=== PATIENT | female | born 1985 | race Asian ===

== ENCOUNTER → 2016-04-25 | Outpatient (CLI) | payer OTHER ==
[~2016-04-25] MED LIST: PRENTAB26 PO
== END | disposition home or self-care (01) ==
LOC: C.LABSPEC 15:07
PROVIDERS: ATTEND Obstetrics & Gynecology
DX: Z34.83 Encounter for supervision of other normal pregnancy, third trimester (principal)

== ENCOUNTER 2016-05-15 13:32 | Inpatient (IN) | payer OTHER ==
[~2016-05-15] VITALS: Ht 157.5 cm; Wt 79.0 kg
[2016-05-15 13:53] VITALS: Ht 157.5 cm; Wt 79.0 kg
[2016-05-15] MEDS ORDERED: LACTATED RINGER'S 1000ML 1,000 ML IV PRN (14:08)
[2016-05-15] MEDS ORDERED: LACTATED RINGER'S 1000ML 1,000 ML IV SCH (14:08)
[2016-05-15 15:03] LABS: HEMATOCRIT 37.9 % (37-47); MEAN CELL VOLUME 92.2 fL (80-100); MEAN CORPUSCULAR HEMOGLOBIN 32.1 pg (25-34); MEAN CORPUSCULAR HGB CONC 34.8 g/dl (32-36); MEAN PLATELET VOLUME 10.7 fL (7.4-10.4); PLATELET COUNT 177 K/uL (130-400); RED BLOOD COUNT 4.11 M/uL (4.2-5.4); WHITE BLOOD COUNT 9.64 K/uL (4.8-10.8)
[2016-05-15] MEDS ORDERED: BUPIVACAINE 0.25% 30 ML VIAL ONE (15:03)
[2016-05-15] MEDS ORDERED: FENTANYL CITRATE INJ 50 MCG/1 ML 2 ML VIAL ONE (15:03)
[2016-05-15] MEDS ORDERED: EpHEDrine SULFATE INJ 50 MG/ML AMP ONE (15:03)
[2016-05-15] MEDS ORDERED: FENTANYL 2MCG/ML ROPIV 1.25MG/ML 100ML BAG EPI ONE (15:04)
[2016-05-15] MEDS ORDERED: LACTATED RINGER'S 1000ML 500 ML IV PRN (16:20)
[2016-05-15] MEDS ORDERED: NALOXONE HCL INJ 1 MG in SODIUM CHLORIDE 0.9% 1000ML 1,000 ML IV PRN (16:20)
[2016-05-15] MEDS ORDERED: DiphenhydrAMINE HCL 50 MG/ML VIAL IV PRN (16:30)
[2016-05-15] MEDS ORDERED: NALBUPHINE HCL INJ 10 MG/ML AMP IV PRN (16:30)
[2016-05-15] MEDS ORDERED: NALOXONE HCL INJ 0.4 MG/1 ML VIAL/CARP IV PRN (16:30)
[2016-05-15] MEDS ORDERED: FENTANYL 2MCG/ML ROPIV 1.25MG/ML 100ML BAG EPI PRN (16:30)
[2016-05-15] MEDS ORDERED: EpHEDrine SULFATE INJ 50 MG/ML AMP IV PRN (16:30)
[2016-05-15] MEDS ORDERED: ONDANSETRON INJ 2 MG/ML 2 ML VIAL IV PRN (16:30)
[2016-05-15] MEDS ORDERED: OXYTOCIN 30 UNITS/500ML NSS IV ONE (18:05)
[2016-05-15] MEDS ORDERED: ACETAMINOPHEN 325 MG TAB PO PRN (18:45)
[2016-05-15] MEDS ORDERED: HYDROCORTISONE ACETATE 25 MG SUPP PR PRN (18:45)
[2016-05-15] MEDS ORDERED: OXYTOCIN 30 UNITS/500ML NSS IV PRN (18:45)
[2016-05-15] MEDS ORDERED: ACETAMINOPHEN/CODEINE 300/30MG TAB PO PRN ×2 (18:45)
[2016-05-15] MEDS ORDERED: BENZOCAINE 20% AER SPR 82.5 GM CAN EXT PRN (18:45)
[2016-05-15] MEDS ORDERED: LANOLIN OINT EXT PRN ×2 (18:45)
[2016-05-15] MEDS ORDERED: SUPERCREAM 0.870 % 15GM JAR EXT PRN (18:45)
[2016-05-15] MEDS ORDERED: OXYCODONE/ACETAMINOPHEN 5-325 TAB PO PRN (18:45)
[2016-05-15] MEDS: IBUPROFEN 600 MG TAB PO PRN (20:20)
[2016-05-15] MEDS: DOCUSATE SODIUM 100 MG CAP PO SCH (20:25)
--- NOTE | 2016-05-15 20:26 | DELIVERY SUMMARY ---
DATE OF OPERATION: 05/15/2016 VAGINAL DELIVERY NOTE Mrs. Velasco presented for labor and delivery. Her was uncomplicated. She is group B strep negative, 39 weeks 4 days with not rupture of membranes. She presented to then labor. heart rate was category 1. She requested epidural. ARM performed at 8 cm and then the patient shortly afterwards delivered a baby in left occiput anterior position. There was a loose nuchal cord and it was released after delivery of the head. Mouth and then nares were suctioned with bulb. Baby was delivered by gentle traction, no excessive force was used. Live vigorous male infant. Cord gas was obtained, cord blood obtained, placenta removed with gentle traction. Second degree tear repaired with 3-0 Vicryl. Sponge and instrument counts correct. Rectal exam negative for defects or sutures. Estimated blood loss 300 mL. I attest to the content of the Intraoperative Record and any orders documented therein. Any exceptio ns are noted below.
--- NOTE | 2016-05-15 21:25 | Anesthesia Procedure Note ---
Anesthesia Epidural Removal Nt Date & Time May 15, 2016 at 21:25 Vital Signs Pain Intensity: 4.0 Notes Mental Status: alert / awake / arousable, participated in evaluation Nausea / Vomiting: adequately controlled Pain: adequately controlled Airway Patency, RR, SpO2: stable & adequate BP & HR: stable & adequate Hydration State: stable & adequate Neuraxial Anesthesia: was administered, sensory block is resolving Anesthetic Complications: no major complications apparent, pt satisfied with anesthetic care Epidural: removed without complications, with tip intact
[2016-05-15 22:05] VITALS: BP 103/70; PULSE 100; TEMP 37; O2SAT 97
[2016-05-15 23:15] VITALS: BP 98/64; PULSE 89; TEMP 37; O2SAT 98
[2016-05-16 03:30] VITALS: BP 97/61; PULSE 86; TEMP 36.8; O2SAT 96
[2016-05-16] MEDS: IBUPROFEN 600 MG TAB PO PRN ×3 (06:27→16:25)
[2016-05-16 07:04] LABS: HEMATOCRIT 31.3 % (37-47)
[2016-05-16 08:00] VITALS: BP 97/63; PULSE 85; TEMP 36.8
[2016-05-16] MEDS: DOCUSATE SODIUM 100 MG CAP PO SCH ×2 (08:09→20:05)
[2016-05-16] MEDS: PRENATAL VITAMIN TAB PO SCH (08:09)
--- NOTE | 2016-05-16 08:29 | Progress Note ---
Subjective May 16, 2016. Subjective conversation w/ patient, physical exam, chart review, lab review Ambulation: ambulating normally Voiding: no voiding problems Diet Tolerance: Regular Diet Lochia: Small Objective Vital Signs Date Time Temp Pulse Resp B/P Pulse Ox O2 Delivery O2 Flow Rate FiO2 05/16/16 03:30 36.8 86 16 97/61 96 Room Air 05/15/16 23:15 37.0 89 18 98/64 98 Room Air 05/15/16 23:15 Room Air 05/15/16 22:05 37.0 100 16 103/70 97 Room Air 05/15/16 22:05 Room Air Physical Exam General Appearance: WELL-APPEARING Abdomen: non tender Fundus: Firm Extremities: no calf tenderness Laboratory Results Last 24 Hours Test 05/15/16 14:30 05/16/16 06:35 White Blood Count 9.64 K/uL Red Blood Count 4.11 M/uL Hemoglobin 13.2 g/dL 10.7 g/dL Hematocrit 37.9 % 31.3 % Mean Corpuscular Volume 92.2 fL Mean Corpuscular Hemoglobin 32.1 pg Mean Corpuscular Hemoglobin Concent 34.8 g/dl RDW Standard Deviation 48.1 fL RDW Coefficient of Variation 14.4 % Platelet Count 177 K/uL Mean Platelet Volume 10.7 fL Assessment and Plan Post- Day#: 1 Continue Routine Care: home
--- NOTE | 2016-05-16 08:30 | Discharge Instructions ---
Discharge Instructions Date of Service May 16, 2016. Admission Reason for Admission: R/O Labor Discharge Discharge Diagnosis / Problem: normal delivery Discharge Goals Goal(s): Routine recovery after delivery Activity Recommendations Activity Limitations: per Instructions/Follow-up section . Instructions / Follow-Up Instructions / Follow-Up ACTIVITY RECOMMENDATIONS: * Gradual return to full activity over the next 2-3 weeks. * No lifting - nothing heavier than baby over the next 2-3 weeks. * Do not engage in vigorous exercise, sexual activity or sports until cleared by your physician. * Do not drive or operate any motorized equipment until cleared by your physician. * You may shower/bathe daily. MEDICATIONS: For discomfort or pain, you may use Acetaminophen (Tylenol), Ibuprofen (Advil), or Naproxen (Aleve) following the package directions. For constipation you may use Colace following the package directions. BREAST CARE: If you are not breast feeding: * Wear a supportive bra 24 hours a day for one to two weeks. * Avoid stimulating your breasts and nipples as much as possible during the first few weeks after delivery. * When taking a shower, have the warm water hit your back, not breasts. * When your breasts feel full, apply ice packs. Usually three to four times a day helps ease the discomfort. * Take a mild pain medication (Tylenol / Motrin) when you are uncomfortable. If breast feeding: * Use breast milk to lubricate nipples. Lansinoh cream may be used for sore nipples. You do not need to remove cream prior to breast feeding. If using a different brand of cream, check the label for directions regarding removal of cream prior to nursing. * Wear a supportive bra. * If having problems with breasts or breast feeding, call a siebel consultant or your health care provider. EPISIOTOMY CARE: After delivery, if you have an episiotomy (stitches), the following steps will ease discomfort and aid healing. * For the first 24 hours after delivery, place ice packs next to your episiotomy to help reduce swelling. * After the first 24 hour-period, sitz baths, either portable or in the tub, are suggested. A shower with a shower arm sprayed over the episiotomy may be comforting. * Ysabel care should be done after each voiding and bowel movement. Squirt warm water from a plastic bottle over the perineum (region of the body between the anus and urinary opening) and pat dry. * Use Dermoplast to ease discomfort. Shake container. [place] directly over the episiotomy. Place a Tucks on a clean sanitary pad next to your episiotomy. SPECIAL CARE INSTRUCTIONS: When you are discharged from the hospital, it is important for you to follow the instructions listed below: * During the first week at home, you should be able to care for yourself and your baby. In addition, the usual light household activities are encouraged. * Limit your activities to the way you feel. Do not try to clean the house or move furniture. Be sensible. * If you actively engage in sports and have done so up until the time of your delivery, you may resume these activities as soon as you feel able. This may take up to one month or even longer. Use good judgment. * Continue to take your vitamins for at least six weeks after the of your baby. * Your diet need not be limited unless you were on a special diet before your delivery. Breast-feeding mothers need around 2500 calories per day and at least 64-80 ounces of fluid per day (8 to 10 glasses). * You should eat foods from the four major food groups. Crash diets or fad diets are to be avoided. Eating lean meats, fresh fruits and vegetables, low-fat dairy products, high fiber foods and a regular exercise program, will help you get back to your pre- weight without putting your health at risk. * Constipation is sometimes a problem after delivery. Take a mild laxative as needed. If breast feeding, Milk of Magnesia is acceptable to use. You may use a suppository or Fleets enema if no episiotomy. * A daily shower or tub bath is suggested. Be sure to thoroughly and gently dry the perineum. * A bloody vaginal discharge will usually continue until around four weeks post . A small amount of bleeding may continue for as long as six weeks. Vaginal discharge changes from the bright red bleeding after delivery to pink then brownish and finally yellowish-pink before becoming white and disappearing. * Bleeding may increase with activity. Your first period may come in 4-8 weeks. If you are breast feeding, your period may be delayed even longer. * [place] (sex) can begin whenever both you and your partner feel comfortable and do not have any form of genital infection. It is recommended that you wait at least six weeks for internal and external healing to occur. If you have questions, please talk to your health care practitioner. A condom should be used to prevent infection and . * Foreplay, gentle intercourse and lubrication is very important the first several times to prevent pain. A water-based lubricant such as K-Y jelly or Astroglide may be used. * If you have RH negative blood and your baby is RH positive, you will receive RHOGAM by injection prior to discharge. The nurse will give you a card to keep with you that has the date and place that you received RHOGAM after delivery. * During your care, you had a Rubella screen done to check for the presence of rubella antibodies in your blood. If your test was negative, you will receive a Rubella vaccine prior to discharge. This vaccine may cause a fever, soreness at the injection site and flu-like symptoms. If these symptoms persist, notify your health care practitioner. is not advised for one month after a Rubella vaccine. * Verbalizes understanding of car seat law as reviewed with patient nursing. * Car Seat hand-out given and reviewed with patient by nursing. * Shaken baby information reviewed with patient by nursing. Call you doctor if: * Heavy bleeding (saturating several pads an hour) or passing clots the size of your fist. * A fever >101 degrees F (38.3 degrees C) on two occasions four hours apart and /or chills. * Unusual pain in the pelvic or vaginal areas. * "Baby Blues" lasting longer than two weeks. If you have any questions or concerns, call your health care practitioner at . FOLLOW UP VISIT: * Please call the office at to schedule a 6 week examination. It is important you keep this appointment. It is important for you to make arrangements for either yearly or twice yearly check-ups thereafter. Current Hospital Diet Patient's current hospital diet: Regular OB Diet Discharge Diet Recommended Diet: Regular OB Diet Pending Studies Studies pending at discharge: no Medical Emergencies . Who to Call and When: Medical Emergencies: If at any time you feel your situation is an emergency, please call 911 immediately. . Non-Emergent Contact Non-Emergency issues call your: Primary Care Provider . . "Provider Documentation" section prepared by Rodriguez Hayden. VTE Core Measure Inpt VTE Proph given/why not?: Treatment not indicated
[2016-05-16 11:55] VITALS: BP 99/64; PULSE 81; TEMP 36.8
[2016-05-16 15:30] VITALS: BP 93/58; PULSE 84; TEMP 36.9
[2016-05-16] MEDS ORDERED: BISACODYL 5 MG TABEC PO SCH (20:00)
[2016-05-16 23:15] VITALS: BP 95/57; PULSE 92; TEMP 36.7
[2016-05-17] MEDS: IBUPROFEN 600 MG TAB PO PRN ×2 (03:24→11:13)
[2016-05-17] MEDS ORDERED: BISACODYL 10 MG SUPP PR PRN (07:00)
--- NOTE | 2016-05-17 07:21 | Progress Note ---
Subjective May 17, 2016. Subjective conversation w/ patient, physical exam Ambulation: ambulating normally Voiding: no voiding problems Passing Gas: Yes Diet Tolerance: Regular Diet Lochia: Small Feeding Type: Breast Feeding Review of Systems Constitutional: No chills, No fever Respiratory: No cough, No shortness of breath Cardiac: No chest pain, No palpitations Objective Vital Signs Date Time Temp Pulse Resp B/P Pulse Ox O2 Delivery O2 Flow Rate FiO2 05/16/16 23:15 36.7 92 16 95/57 05/16/16 23:15 Room Air 05/16/16 15:30 Room Air 05/16/16 15:30 36.9 84 18 93/58 Room Air 05/16/16 11:55 36.8 81 18 99/64 Room Air 05/16/16 08:00 36.8 85 16 97/63 Room Air 05/16/16 08:00 Room Air Physical Exam General Appearance: WELL-APPEARING, NO APPARENT DISTRESS Respiratory/Chest: lungs clear, no respiratory distress Cardiovascular: regular rate, rhythm, no murmur Fundus: Firm, Non-Tender, Relation to Umbilicus (1 cm below) Extremities: non-tender, no calf tenderness Assessment and Plan Post- Day#: 2 Continue Routine Care: s/p Day 2 - vital reviewed and wnl - Blood: O+, GBS-, Rubella immune - Encourage ambulation, encourage breast feeding, monitor lochia - Patient doing well clinically - Patient instructed on discharge instructions - PATIENT TO BE DISCHARGED TODAY Resident Physician Supervision Note: I interviewed and examined the patient. Discussed with Dr. Almanzar and agree with findings and plan as documented in the note. Any exceptions or clarifications are listed here: [None] Documented By: Merly Sauceda
[2016-05-17 07:45] VITALS: BP 100/64; PULSE 78; TEMP 36.9; O2SAT 97
[2016-05-17] MEDS: DOCUSATE SODIUM 100 MG CAP PO SCH (08:12)
[2016-05-17] MEDS: PRENATAL VITAMIN TAB PO SCH (08:12)
[2016-05-17 13:15] VITALS: BP_DIAS 64; PULSE 78; TEMP 36.9
== END 2016-05-17 13:30 | disposition home or self-care (01) | DRG 775 ==
LOC: C.LD 13:32 → C.OPB 13:32 → C.LD 14:11 → C.OBG 21:39 → EDSTATUS 05-18 13:33
PROVIDERS: ADMIT Obstetrics & Gynecology; ATTEND Obstetrics & Gynecology
PROC: 10E0XZZ Delivery of Products of Conception, External Approach (ICD-10-PCS; principal; 2016-05-15)
PROC: 10907ZC Drainage of Amniotic Fluid, Therapeutic from Products of Conception, Via Natural or Artificial Opening (ICD-10-PCS; 2016-05-15)
PROC: 0KQM0ZZ Repair Perineum Muscle, Open Approach (ICD-10-PCS; 2016-05-15)
DX: O69.81X0 Labor and delivery complicated by cord around neck, without compression, not applicable or unspecified (principal); Z3A.39 39 weeks gestation of pregnancy; Z37.0 Single live birth